=== PATIENT | female | born 1940 | race African-American/Black ===

== ENCOUNTER → 2017-02-13 | Outpatient (CLI) | payer OTHER ==
[~2017-02-13] MED LIST: ADULT LOW DOSE81 MG PO; ALDACTONE50 MG PO; AMBIEN 5 MG TABL5 M1 PO; B-COMPLEX-VITA1 EACH PO; BENICAR HCT 201 EACH PO; BENTYL20 MG PO; CENTRUM SILVER1 EAC4 PO; CIPROFLOXACIN500 M1; CRESTOR10 MG PO; FLAGYL500 MG; HUMALOG100 UNIT/1 SQ; HYDROCODON-ACE1 EAC5 PO; HYDROCODONE-AP1 EAC6 PO; IRON325; LANTUS SC; MIRTAZAPINE7.5 MG PO; NEURONTIN 300300 M1 PO; NORCO 5-325 TA1 EACH PO; NOVOLOG100 UNIT/1 SQ; ORACEA40 MG PO; OXYCONTIN; VITAMIN D1000 UNI1 PO
--- NOTE | ~2017-02-13 | HC ---
[facility] [place] [address] CONSULTATION Name: MILAGROS LEMUS [id number] Admission: 02/13/17 Attend Phys: Orestes Martinez Discharge: Date of : 40 Report #: [id number] THIS REPORT FOR: //name// CC: Orestes Cox MD DATE OF SERVICE: 02/13/2017 HISTORY OF PRESENT ILLNESS: The patient is a 76-year-old woman referred by Dr. Cox for an Infectious Disease opinion regarding right foot pain, particularly localized over the right lateral ankle malleolus. Initially, the patient evaluated by Dr. Cox. The possibility of gout was entertained and she was treated with tapering doses of prednisone and was subsequently advised the uric acid was normal. On account of persistent redness and pain of the right foot, she had a visit with [facility] on 01/26/2017 and at that particularly visit apparently, she had an x-ray of the right ankle, ultrasound venous Doppler and duplex of the right lower extremity as well as CBC, CMP, ESR and CRP. None of those results are available to me and she is diagnosed to have bacterial skin infection of the leg and she is prescribed doxycycline 100 mg I supposed 2 times daily. The patient failed to improve, but in the last 2 days, she tells me things are definitely getting better and currently, the only thing she has left is some pain over the right ankle lateral malleolus as well as increased temperature in that area. DRUG ALLERGIES: PENICILLIN, MACROLIDE, CLARITHROMYCIN, QUINAPRIL. WITH PENICILLIN, SHE HAS SOME PROBLEMS WITH HIVES TYPE REACTION. MEDICATIONS: The patient is currently on treatment with tramadol 50 mg t.i.d. p.r.n., atorvastatin 5 mg daily, aspirin 81 mg daily, centrum 1 daily, NovoLog insulin 10 units 3 times daily, Lantus 15 units at 9:00, zolpidem 10 mg at bedtime, valsartan-hydrochlorothiazide 1 daily. PAST MEDICAL HISTORY: Previous history of rotator cuff surgery, partial hysterectomy, appendectomy, tubal ligation. She has diabetes mellitus and hypertension for a number of years. Previous heart catheterization in 2001 showing no significant coronary artery disease. Neck surgery by Dr. Melendez. History of chronic back pain, treated with steroid injection. History of lumbar spondylosis and lumbar stenosis for which she was referred to [facility] where the patient elected not to proceed with surgery. History of right hip pain for which she has some type of surgical intervention at [facility]. History of multiple skin lesions, seborrheic keratoses, which appears to be run in her family. 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 She has a daughter. [place] [address] CONSULTATION Name: MILAGROS LEMUS Room #: REG [facility] Onel#: [id number] Admission: 02/13/17 Attend Phys: Orestes Martinez Discharge: Date of : 40 Report #: [id number] REVIEW OF SYSTEMS: Essentially noncontributory. PHYSICAL EXAMINATION: GENERAL: This is a well-developed, not toxic looking woman in no distress. VITAL SIGNS: Blood pressure 148/73, pulse 86, temperature 97.8, O2 saturation 97% at room air. HEENMT: Within range. NECK: Supple. BREASTS: Deferred. LUNGS: Clear. HEART: S1, S2. ABDOMEN: Soft, no masses or megaly. SKIN: Revealed numerous seborrheic keratosis lesions on abdomen and chest wall. PELVIC AND RECTAL: Deferred. EXTREMITIES: Revealed some increased temperature as well as swelling over the right ankle lateral malleolus. The temperature of the right ankle lateral malleolus is slightly increased compared to the left. Peripheral pulses of feet palpable. No skin breakdown. No obvious signs of infection at present time. LABORATORY DATA: None available for my review. ASSESSMENT: 1. Right ankle malleolus swelling and tenderness, possible arthritis, must rule out infection. 2. Diabetes mellitus. 3. Hypertension. 4. HISTORY OF PENICILLIUM, CLARITHROMYCIN, QUINAPRIL ALLERGY INTOLERANCE. SUGGESTIONS: Recommend needs to evaluate CBC, CMP, ESR and CRP that was obtained at [facility] on 01/26/2017. I would like to see also the x-ray of the right ankle and if possible, review those films. We will need to evaluate her right ankle pain with an MRI of the ankle. At current time, no clear-cut indication for systemic antibiotics. Since the patient not toxic, I will not order any antibiotics. I would like to visit with the patient again in 7 days to put all things together. Dr. Yandy Cox, thank you for requesting my suggestions in the care of your patient. <ELECTRONICALLY SIGNED> By: Orestes Prince MD 02/14/17 0921 [id number] [id number] Orestes Prince MD /nt
== END ==
LOC: SEN 09:09
DX: I10 Essential (primary) hypertension (principal); E11.9 Type 2 diabetes mellitus without complications; M79.89 Other specified soft tissue disorders

== ENCOUNTER → 2017-02-19 | Outpatient (CLI) | payer OTHER ==
--- NOTE | ~2017-02-19 | HC ---
[facility] [place] [address] CONSULTATION Name: MILAGROS LEMUS Room #: REG [facility] Onel#: [id number] Admission: 02/19/17 Attend Phys: Orestes Martinez Discharge: Date of : 40 Report #: [id number] THIS REPORT FOR: //name// CC: Orestes Cox MD DATE OF SERVICE: 02/19/2017 HISTORY OF PRESENT ILLNESS: The patient is a 76-year-old woman, patient of Dr. Yandy Cox that returned for followup of right ankle pain, cellulitis, and possible arthritis. The patient actually is doing better. She is still using a cane. She was previously advised by the surgeons that did her hip replacement not to take arthritis medication. The rationale for these is unclear to me. Obviously, she can take Tylenol, she tells me. The right ankle pain and swelling is definitely getting better. We will review with the patient the laboratory results on her recent visit with [facility] in 12/2016. She did have a chemistry profile that was completely normal. Her CBC revealed hemoglobin of 11.7 g/dL that was mildly depressed. Her sedimentation rate was elevated at 96 mm per hour and C-reactive protein was as well elevated at 73.6 mg/L. At that particular visit, x-ray of the right foot and ankle were negative and venous Doppler to rule out lower extremity was negative. Per old note, possibly she had cellulitis. I did request that an MRI of her ankle be performed and I discussed with her these findings as well. All in all, the patient is doing much better. OBJECTIVE: GENERAL: Well-developed woman, not toxic looking. VITAL SIGNS: BP 155/85, pulse 69, temperature 97.7, O2 saturation 99% at room air. HEENMT: Within range. NECK: Supple. LUNGS: Clear. HEART: S1, S2. ABDOMEN: Benign. EXTREMITIES: The right ankle is definitely better. Again, the swelling of the right ankle lateral malleolus has decreased significantly. The increased temperature is also improved. All in all, the inflammatory changes of the right ankle has significantly improved. LABORATORY DATA: An MRI of the right ankle revealed moderate synovitis at the tibiotalar joint. Soft tissue edema. Patchy bone marrow edema. Degenerative changes of the posterior medial tibial joints. 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 [address] [address] CONSULTATION Name: MILAGROS LEMUS Room #: REG [facility] Onel#: [id number] Admission: 02/19/17 Attend Phys: Orestes Martinez Discharge: Date of : 40 Report #: [id number] ASSESSMENT: 1. Right ankle pain secondary to degenerative arthritis. 2. Possible cellulitis, right ankle foot, improved and resolved. 3. Diabetes mellitus. 4. Hypertension. 5. Penicillin and clarithromycin allergy intolerance. SUGGESTIONS: At present, this patient is definitely improving and I, for time being, recommend no further diagnostic or therapeutic interventions. The patient may benefit from using Tylenol 325 mg 2 tablets 2 to 3 times daily if needed. She will continue to offload the right ankle by continuing to use her walking cane. I would repeat the CRP and ESR when she visits next time with Dr. Yandy Cox, her primary physician. At present, I believe she needs no followup appointment with me, but I will gladly visit with the patient again if so needed. She can call me at any point in time with questions or concerns. <ELECTRONICALLY SIGNED> By: Orestes Prince MD 02/21/17 0918 1136 1648 Orestes Prince MD /nt
== END ==
LOC: SEN 08:59
DX: M19.071 Primary osteoarthritis, right ankle and foot (principal); E11.9 Type 2 diabetes mellitus without complications; I10 Essential (primary) hypertension; Z79.899 Other long term (current) drug therapy

== ENCOUNTER → 2017-04-02 | Outpatient (CLI) | payer OTHER ==
--- NOTE | ~2017-04-02 | HC ---
[facility] [place] [address] CONSULTATION Name: MILAGROS LEMUS [facility] [id number] Admission: 04/02/17 Attend Phys: Orestes Martinez Discharge: Date of : 40 Report #: [id number] THIS REPORT FOR: //name// CC: Orestes Buenrostrory Kenny DATE OF SERVICE: 04/02/2017 HISTORY OF PRESENT ILLNESS: The patient is a 76-year-old -[place]i woman that returns with complaints of very itchy rashes on legs that come and go, which she had been treating with topical antiitch cream (Benadryl 2% cream) as well as triple antibiotic ointment. The skin rashes come and go, and they are extremely itchy, and she thinks there might be an allergic type reaction. She has used the topical Benadryl with some help, but what really helped is Benadryl 25 mg p.o. once or twice daily, and it helped the itching. By the way, the right ankle pain, swelling are completely better. OBJECTIVE: GENERAL APPEARANCE: Well-developed woman. Weight 188 pounds. VITAL SIGNS: BP 168/106, pulse 75, temperature 97.4, O2 saturation 98% on room air. HEENMT: Within range. LUNGS: Clear. HEART: S1, S2. ABDOMEN: Benign. EXTREMITIES: On the left leg, there is an area of mild erythema in a rather symmetrical type distribution that possibly is telling us this is a contact dermatitis. On the lateral aspect of the right leg, she also has much smaller lesion and less red that also have rather straight line borders suggesting contact dermatitis. By the way, the examination of the right ankle is completely normal. ASSESSMENT: Contact dermatitis, legs, possibly related to triple antibiotic ointment. SUGGESTIONS: Recommend the patient no longer should be using triple antibiotic ointment on legs. She should be using Aristocort cream 0.1% b.i.d. if needed, dispensed 30 grams and Benadryl OTC 25 mg t.i.d. p.r.n. itching. She is to see me on an as needed basis. <ELECTRONICALLY SIGNED> By: Orestes Prince MD 04/03/17 1008 1140 1230 Orestes Prince MD /nt
== END ==
LOC: SEN 10:55
DX: L23.9 Allergic contact dermatitis, unspecified cause (principal)